=== PATIENT | female | born 1985 | race African-American/Black ===

== ENCOUNTER 2022-02-06 11:30 | Emergency (ER) | payer MEDICAID ==
[~2022-02-06] VITALS: Ht 167.6 cm; Wt 75.0 kg
[2022-02-06] MEDS ORDERED: KETOROLAC 30MG/ML VIAL IM ONE (13:45)
[2022-02-06 14:55] VITALS: BP 146/90
[2022-02-06] MEDS ORDERED: IBUP-2029 MT (15:03)
== END 2022-02-06 15:19 | disposition home or self-care (01) ==
LOC: ER 11:47
DX: M79.662 Pain in left lower leg (principal); G89.11 Acute pain due to trauma; V49.49XA Driver injured in collision with other motor vehicles in traffic accident, initial encounter; Y93.89 Activity, other specified; Y92.488 Other paved roadways as the place of occurrence of the external cause
CPT/HCPCS: 73552; 96372; 99283; J1885